=== PATIENT | female | born 1945 | race Caucasian/White ===

== ENCOUNTER 2021-07-24 11:39 | Inpatient (IN) | payer OTHER ==
[~2021-07-24] VITALS: Ht 162.6 cm; Wt 78.9 kg
[~2021-07-24 11:39] MED LIST: CATAFLAN PO; DIOVAN160 M1 PO; DURICEF 500 MG CAPSULE PO; GLIPIZIDE10 MG PO; INTEGRA PLUS C1 EACH PO; LISINOPRIL20 MG PO; METOPROLOL SUCC25 MG PO; OXYC1TAB9 PO; SYNTHRO PO; SYNTHROID200 MCG PO; TRAM1TAB98 PO; XARELTO10 MG PO
[2021-07-27] MEDS ORDERED: SUCRALFATE1 GM (10:34)
[2021-07-27] MEDS ORDERED: OMEPRAZOLE20 MG (10:34)
[2021-07-27] MEDS ORDERED: AZATHIOPRINE50 MG (10:34)
[2021-07-27] MEDS ORDERED: DICLOFENAC SODI75 MG (10:35)
[2021-07-27] MEDS ORDERED: BISOPROLOL FUMAR5 MG (10:35)
[2021-07-27] MEDS ORDERED: AMLODIPINE BESYL5 MG (10:35)
[2021-07-27] MEDS ORDERED: VALSARTAN-HCTZ1 EAC3 (10:35)
[2021-07-27] MEDS ORDERED: JANUMET 50-5001 EACH (10:35)
[2021-07-27] MEDS ORDERED: FUROSEMIDE20 MG (10:35)
[2021-07-27] MEDS ORDERED: ACETIC ACID W/H10 ML (10:36)
[2021-07-27] MEDS ORDERED: ELIQUIS5 MG (10:36)
[2021-07-27] MEDS ORDERED: BRIMONIDINE TART5 ML (10:36)
[2021-07-27] MEDS ORDERED: DILTIAZEM 24HR180 MG (10:36)
[2021-07-27] MEDS ORDERED: DICLOFENAC POTA50 MG (10:36)
[2021-07-27] MEDS ORDERED: LATANOPROST2.5 ML (10:37)
[2021-07-31] MEDS ORDERED: ELIQUIS5 MG PO (08:31)
[2021-07-31] MEDS ORDERED: INTEGRA PLUS C1 EACH PO (08:31)
[2021-07-31] MEDS ORDERED: ULTRACET PO (08:31)
[2021-07-31] MEDS ORDERED: BACTRIM DS TAB1 EACH PO (08:31)
== END 2021-07-31 22:24 | disposition home or self-care (01) | DRG 481 ==
LOC: ER 11:39 → SURH 20:32
PROVIDERS: ADMIT Orthopaedic Surgery Sports Medicine; ATTEND Orthopaedic Surgery Sports Medicine
PROC: 0QS706Z Reposition Left Upper Femur with Intramedullary Internal Fixation Device, Open Approach (ICD-10-PCS; principal; 2021-07-24)
PROC: 3E0F7GC Introduction of Other Therapeutic Substance into Respiratory Tract, Via Natural or Artificial Opening (ICD-10-PCS; 2021-07-26)
PROC: 4A033R1 Measurement of Arterial Saturation, Peripheral, Percutaneous Approach (ICD-10-PCS; 2021-07-26)
PROC: 4A12X4Z Monitoring of Cardiac Electrical Activity, External Approach (ICD-10-PCS; 2021-07-27)
PROC: BB24ZZZ Computerized Tomography (CT Scan) of Bilateral Lungs (ICD-10-PCS; 2021-07-27)
PROC: B246ZZZ Ultrasonography of Right and Left Heart (ICD-10-PCS; 2021-07-27)
PROC: CB221ZZ Tomographic (Tomo) Nuclear Medicine Imaging of Lungs and Bronchi using Technetium 99m (Tc-99m) (ICD-10-PCS; 2021-07-27)
DX: S72.142A Displaced intertrochanteric fracture of left femur, initial encounter for closed fracture (principal); I97.191 Other postprocedural cardiac functional disturbances following other surgery; J95.89 Other postprocedural complications and disorders of respiratory system, not elsewhere classified; J98.11 Atelectasis; W22.8XXA Striking against or struck by other objects, initial encounter; Y93.89 Activity, other specified; Y92.89 Other specified places as the place of occurrence of the external cause; Y99.8 Other external cause status; Z20.822 Contact with and (suspected) exposure to COVID-19; R09.02 Hypoxemia